=== PATIENT | female | born 1975 | race African-American/Black ===

== ENCOUNTER 2017-08-28 17:41 | Emergency (ER) | payer MEDICAID, OTHER ==
[~2017-08-28] VITALS: Ht 162.6 cm; Wt 60.0 kg
[2017-08-28 17:42] VITALS: BP 106/52
== END 2017-08-28 19:14 | disposition left against medical advice (07) ==
LOC: ER 18:08
DX: R07.89 Other chest pain (principal); R53.1 Weakness; R45.1 Restlessness and agitation; F91.8 Other conduct disorders
CPT/HCPCS: 99283